=== PATIENT | male | born 1940 | race Caucasian/White ===

== ENCOUNTER 2017-10-02 11:10 | Emergency (ER) | payer MEDICARE, MEDICAID ==
--- NOTE | 2017-10-02 12:38 | EDM.PDOC ---
ED HPI GENERAL MEDICAL PROBLEM - General Chief Complaint: Genitourinary Problem Stated Complaint: PROSTATE PROBLEMS Time Seen by Provider: 10/02/17 12:36 Source of Information: Reports: Patient History Limitations: Reports: No Limitations - History of Present Illness INITIAL COMMENTS - FREE TEXT/NARRATIVE: pt had a tur about 8 days ago, He had the brito cath removed on wed. He has been burning and feeling quite uncomfortable for the past few days. Onset: Gradual Duration: Day(s): Location: Reports: Abdomen Associated Symptoms: Reports: Fever/Chills - Related Data Allergies Allergy/AdvReac Type Severity Reaction Status Date / Time lisinopril Allergy Confusion Verified 10/02/17 11:44 Home Meds: Home Meds Acetaminophen [Tylenol Extra Strength] 1,000 mg PO Q6H PRN 10/02/17 [History] Carvedilol [Coreg] 3.125 mg PO BID 10/02/17 [History] Finasteride [Proscar] 5 mg PO DAILY 10/02/17 [History] Furosemide 40 mg PO DAILY 10/02/17 [History] Potassium Chloride [K-Tab ER] 20 meq PO DAILY 10/02/17 [History] Tamsulosin [Flomax] 0.4 mg PO DAILY 10/02/17 [History] amLODIPine Besylate [Amlodipine Besylate] 20 mg PO DAILY 10/02/17 [History] Past Medical History HEENT History: Reports: Impaired Vision Cardiovascular History: Reports: [place] Genitourinary History: Reports: Prostate Disorder, Other (See Below) Other Genitourinary History: TURP Musculoskeletal History: Reports: Fracture - Infectious Disease History Infectious Disease History: Reports: Chicken Pox, Measles, Mumps - Past Surgical History GI Surgical History: Reports: Colonoscopy, Hernia Repair/Other Male Surgical History: Reports: TURP-Transurethral Resection of Prostate Social & Family History - Tobacco Use Smoking Status *Q: Current Every Day Smoker Years of Tobacco use: 60 Packs/Tins Daily: 0.2 - Caffeine Use Caffeine Use: Reports: Coffee, Soda - Recreational Drug Use Recreational Drug Use: No ED ROS GENERAL - Review of Systems Review Of Systems: See Below Constitutional: Reports: No Symptoms HEENT: Reports: No Symptoms Respiratory: Reports: No Symptoms Cardiovascular: Reports: No Symptoms Endocrine: Reports: No Symptoms GI/Abdominal: Reports: No Symptoms : Reports: Dysuria, Frequency, Other (pt is self cathing post tur. He has been burning the last few days and feels like he has an infection) Musculoskeletal: Reports: No Symptoms ED EXAM, RENAL/ - Physical Exam Exam: See Below Text/Narrative:: pt arrived with pain on urination and a fever. He had a tur about 8 days ago, He has been self caTHING AND HAS A FEVER NOW. Exam Limited By: No Limitations General Appearance: Alert, Moderate Distress Ears: Normal TMs Nose: Normal Inspection Throat/Mouth: Normal Inspection Head: Atraumatic Neck: Normal Inspection Respiratory/Chest: No Respiratory Distress GI/Abdominal: Other (MILD SUPRA PUPIC TENDERNESS) (Male) Exam: Other (NO SWELLING OR DRAINAGE. ) Rectal (Males) Exam: Deferred Back Exam: Normal Inspection Extremities: Normal Inspection Neurological: Alert, Oriented, Normal Cognition Psychiatric: Normal Affect Course - Vital Signs Last Recorded V/S: Last Vital Signs Temp 37.7 C 10/02/17 13:36 Pulse 81 10/02/17 11:56 Resp 18 10/02/17 11:56 BP 148/78 H 10/02/17 11:56 Pulse Ox 94 L 10/02/17 11:56 - Orders/Labs/Meds Orders: Active Orders 24 hr Category Date Time Status Brito Catheter Insertion [Insert Urinary Catheter] [OM. Care 10/02/17 15:15 Ordered PC] Q24H Urinary Catheter Assessment [RC] ASDIRECTED Care 10/02/17 15:15 Active CULTURE URINE [RM] Stat Lab 10/02/17 13:34 Received UA W/MICROSCOPIC [URIN] Urgent Lab 10/02/17 13:11 Ordered Sodium Chloride 0.9% [Normal Saline] 1,000 ml Med 10/02/17 12:45 Active IV ASDIRECTED Medication Orders Sodium Chloride (Normal Saline) 1,000 mls @ 999 mls/hr IV ASDIRECTED CLARISSE Last Admin: 10/02/17 13:12 Dose: 999 mls/hr Labs: Laboratory Tests 10/02/17 10/02/17 10/02/17 Range/Units 12:25 12:25 12:25 WBC 8.8 (4.5-11.0) K/uL RBC 3.94 L (4.30-5.90) M/uL Hgb 12.6 (12.0-15.0) g/dL Hct 38.0 L (40.0-54.0) % MCV 96 (80-98) fL MCH 32 H (27-31) pg MCHC 33 (32-36) % Plt Count 230 (150-400) K/uL Neut % (Auto) 83 H (36-66) % Lymph % (Auto) 9 L (24-44) % [place] % (Auto) 7 H (2-6) % Eos % (Auto) 1 L (2-4) % Baso % (Auto) 0 (0-1) % Sodium 135 L (140-148) mmol/L Potassium 3.5 L (3.6-5.2) mmol/L Chloride 102 (100-108) mmol/L Carbon Dioxide 25 (21-32) mmol/L Anion Gap 11.5 (5.0-14.0) mmol/L BUN 13 (7-18) mg/dL Creatinine 1.1 (0.8-1.3) mg/dL Est Cr Clr Drug Dosing 56.24 mL/min Estimated GFR (MDRD) > 60 (>60) Glucose 152 H (74-106) mg/dL Lactic Acid 1.3 (0.4-2.0) mmol/L Calcium 7.9 L (8.5-10.1) mg/dL Total Bilirubin 0.5 (0.2-1.0) mg/dL AST 15 (15-37) U/L ALT 16 (12-78) U/L Alkaline Phosphatase 145 H (46-116) U/L Total Protein 6.4 (6.4-8.2) g/dL Albumin 2.7 L (3.4-5.0) g/dL Globulin 3.7 H (2.3-3.5) g/dL Albumin/Globulin Ratio 0.7 L (1.2-2.2) Urine Color Urine Appearance Urine pH (4.5-8.0) Ur Specific [place] (1.008-1.030) Urine Protein (NEGATIVE) mg/dL Urine Glucose (UA) (NEGATIVE) mg/dL Urine Ketones (NEGATIVE) mg/dL Urine Occult Blood (NEGATIVE) Urine Nitrite (NEGAITVE) Urine Bilirubin (NEGATIVE) Urine Urobilinogen (NORMAL) mg/dL Ur Leukocyte Esterase (NEGATIVE) Urine RBC (0-5) Urine WBC (0-5) Ur Epithelial Cells Amorphous Sediment Urine Bacteria Urine Mucus 10/02/17 Range/Units 13:11 WBC (4.5-11.0) K/uL RBC (4.30-5.90) M/uL Hgb (12.0-15.0) g/dL Hct (40.0-54.0) % MCV (80-98) fL MCH (27-31) pg MCHC (32-36) % Plt Count (150-400) K/uL Neut % (Auto) (36-66) % Lymph % (Auto) (24-44) % [place] % (Auto) (2-6) % Eos % (Auto) (2-4) % Baso % (Auto) (0-1) % Sodium (140-148) mmol/L Potassium (3.6-5.2) mmol/L Chloride (100-108) mmol/L Carbon Dioxide (21-32) mmol/L Anion Gap (5.0-14.0) mmol/L BUN (7-18) mg/dL Creatinine (0.8-1.3) mg/dL Est Cr Clr Drug Dosing mL/min Estimated GFR (MDRD) (>60) Glucose (74-106) mg/dL Lactic Acid (0.4-2.0) mmol/L Calcium (8.5-10.1) mg/dL Total Bilirubin (0.2-1.0) mg/dL AST (15-37) U/L ALT (12-78) U/L Alkaline Phosphatase (46-116) U/L Total Protein (6.4-8.2) g/dL Albumin (3.4-5.0) g/dL Globulin (2.3-3.5) g/dL Albumin/Globulin Ratio (1.2-2.2) Urine Color Yellow Urine Appearance Turbid Urine pH 8.0 (4.5-8.0) Ur Specific [place] 1.010 (1.008-1.030) Urine Protein 30 H (NEGATIVE) mg/dL Urine Glucose (UA) Normal (NEGATIVE) mg/dL Urine Ketones Negative (NEGATIVE) mg/dL Urine Occult Blood Large (NEGATIVE) Urine Nitrite Negative (NEGAITVE) Urine Bilirubin Negative (NEGATIVE) Urine Urobilinogen 1 (NORMAL) mg/dL Ur Leukocyte Esterase Large (NEGATIVE) Urine RBC 20-30 H (0-5) Urine WBC 50-75 H (0-5) Ur Epithelial Cells Not seen Amorphous Sediment Moderate Urine Bacteria Many Urine Mucus Not seen Meds: Medications Generic Name Dose Route Start Last Admin Trade Name Ivette PRN Reason Stop Dose Admin Sodium Chloride 1,000 mls @ 999 mls/hr 10/02/17 12:45 10/02/17 13:12 Normal Saline IV 999 mls/hr ASDIRECTED CLARISSE Administration Discontinued Medications Generic Name Dose Route Start Last Admin Trade Name Ivette PRN Reason Stop Dose Admin Acetaminophen 650 mg 10/02/17 13:26 10/02/17 13:36 Tylenol PO 10/02/17 13:27 650 mg NOW ONE Administration Levofloxacin/Dextrose 500 mg/ 100 mls @ 100 mls/hr 10/02/17 14:18 10/02/17 14 :48 Premix IV 10/02/17 15:17 100 mls/hr ONETIME ONE Administration Lidocaine HCl Confirm 10/02/17 15:15 Xylocaine 2% Jelly Administered 10/02/17 15:16 Dose 10 ml .ROUTE .STK-MED ONE Lidocaine HCl 10 ml 10/02/17 15:20 10/02/17 15:21 Xylocaine 2% Jelly MUCMEM 10/02/17 15:21 10 ml ONETIME ONE Administration - Re-Assessments/Exams Free Text/Narrative Re-Assessment/Exam: 10/02/17 17:35 URINE LOOKS VERY INFECTED hE DID VOID 145 CC AND HAD OVER A 300 CC RESIDUAL. hE HAS BEEN SELF CATHING. i FEEL AT THIS POINT HE WOULD BE BETTER WITH A CATH WITH GOOD DRAINAGE. hE WAS GIVEN LEVOQUIN 500MG IV. hE WAS GIVEN 2 LITERS OF FLUID. Departure - Departure Time of Disposition: 17:24 Disposition: Home, Self-Care 01 Condition: Fair Clinical Impression: UTI (urinary tract infection), Status post recent transurethral resection of prostate, CA of prostate - Discharge Information Instructions: Urinary Tract Infection, Adult Referrals: PCP,None [Primary Care Provider] - Forms: ED Department Discharge Care Plan Goals: discharge with a brito and leg bag, push fluids, see urology in [place] Wednesday or wednesday, cipro 500mg bid. - My Orders Last 24 Hours: My Active Orders 10/02/17 12:45 Sodium Chloride 0.9% [Normal Saline] 1,000 ml IV ASDIRECTED 10/02/17 13:11 UA W/MICROSCOPIC [URIN] Urgent 10/02/17 13:34 CULTURE URINE [RM] Stat 10/02/17 15:15 Brito Catheter Insertion [Insert Urinary Catheter] [OM.PC] Q24H Urinary Catheter Assessment [RC] ASDIRECTED - Assessment/Plan Last 24 Hours: My Active Orders 10/02/17 12:45 Sodium Chloride 0.9% [Normal Saline] 1,000 ml IV ASDIRECTED 10/02/17 13:11 UA W/MICROSCOPIC [URIN] Urgent 10/02/17 13:34 CULTURE URINE [RM] Stat 10/02/17 15:15 Brito Catheter Insertion [Insert Urinary Catheter] [OM.PC] Q24H Urinary Catheter Assessment [RC] ASDIRECTED
[2017-10-02] MEDS ORDERED: Sodium Chloride 0.9% 1,000 ML IV SCH (12:45)
[2017-10-02] MEDS ORDERED: Acetaminophen 325 MG Tab PO ONE (13:26)
[2017-10-02] MEDS ORDERED: Levofloxacin/Dextrose 5%-Water 500 MG in Premix Bag 1 BAG IV ONE (14:18)
[2017-10-02] MEDS ORDERED: Lidocaine 2% Jelly 10 ML Urojet ONE (15:15)
[2017-10-02] MEDS ORDERED: Lidocaine 2% Jelly 10 ML Urojet MUCMEM ONE (15:20)
== END 2017-10-02 17:46 | disposition home or self-care (01) ==
LOC: JP.ED 11:10
DX: N39.0 Urinary tract infection, site not specified (principal); C61 Malignant neoplasm of prostate; F17.210 Nicotine dependence, cigarettes, uncomplicated; Z88.8 Allergy status to other drugs, medicaments and biological substances; Z79.899 Other long term (current) drug therapy; Z90.79 Acquired absence of other genital organ(s)
CPT/HCPCS: 36415; 51702; 51798; 80053; 81001; 83605; 85025; 87086; 87088; 87186; 96361; 96365; 99284; A9270; J1956; J7040